=== PATIENT | female | born 1930 | race Caucasian/White ===

== ENCOUNTER → 2016-10-06 | Outpatient (CLI) | payer MEDICARE, MEDICAID ==
[~2016-10-06] MED LIST: ASPIRIN EC81 MG PO; CALCIUM1 TA1 PO; DOXYCYCLINE HY100 M4 PO; DOXYCYCLINE HY100 MG PO; DOXYCYCLINE100 M1 PO; IBUPROFEN400 MG PO; LEVOTHYROXIN0.025 M2 PO; LIPITOR40 MG PO; LISINOPRIL 5MG T5 MG PO; LISINOPRIL5 MG PO; LORTAB 5/500 501 TAB PO; MECLIZINE12.5 MG PO; METOCLOPRAMIDE H5 MG PO; MULTI VITAMINS1 TAB PO; NEXIUM40 MG PO; Nitrofurantoin100 MG PO; OXYBUTYNIN CHLO10 MG PO; PANTOPRAZOLE SO40 MG PO; TYLENOL 325MG325 MG PO; VESICARE5 MG PO; VITAMIN B-121 TAB PO
== END ==
LOC: RT 15:09
DX: M79.661 Pain in right lower leg (principal); M79.89 Other specified soft tissue disorders

== ENCOUNTER 2017-03-26 08:40 | Outpatient (CLI) | payer MEDICARE, MEDICAID ==
[2017-03-26] MEDS ORDERED: PLAVIX75 M1 PO (09:00)
[2017-03-26] MEDS ORDERED: POTASSIUM CHLO10 ME3 PO (09:01)
[2017-03-26 09:10] VITALS: BP 134/80
== END 2017-03-26 09:24 | disposition home or self-care (01) ==
LOC: COP 08:40
DX: M81.0 Age-related osteoporosis without current pathological fracture (principal)
CPT/HCPCS: J0897